=== PATIENT | female | born 1995 | race African-American/Black ===

== ENCOUNTER 2022-02-20 11:59 | Observation (INO) | payer OTHER, SELFPAY ==
[2022-02-20 12:30] VITALS: BMI 29.7
[2022-02-20 12:31] VITALS: BP 114/72; PULSE 93
[2022-02-20 12:42] LABS: Appearance Urine Cloudy (Clear); Bilirubin Urine Negative (Negative); Blood Urine Negative (Negative); Color Urine Yellow (Yellow); Glucose Urine UA Negative (Negative); Ketones Urine Negative (Negative); Leukocyte Esterase Ur Negative LEU/UL (Negative); Nitrate Urine Negative (Negative); Protein Urine Trace mg/dL (Negative); pH Urine 8.5 (5.0-9.0)
[2022-02-20 12:46] LABS: Amorphous Sediment Urine Few; Bacteria Urine Trace /hpf; Mucus Urine Rare /lpf; Squamous Epithelial Cell Urine Moderate /hpf (Few)
[2022-02-20 12:47] LABS: Add Urine Microscopic? YES
[2022-02-20 13:00] VITALS: BP 108/68; PULSE 96
[2022-02-20 13:28] VITALS: TEMP 36.6
--- NOTE | 2022-02-20 13:35 | OBADM ---
This patient, Kelsey Anton, admitted to the OB room [facility] for observation. Patient/family oriented to hospital policies and general routines including ID bracelet, bed and alarms, visiting hours, pain management, procedures, bathroom and other care routines, personal items, smoking policy, room service/diet, and visiting hours. Patient/Family are encouraged to report perceived risks to care and to ask questions if they do not understand what they are told or what they should do.
--- NOTE | 2022-03-12 08:27 | PM.OBTRLD ---
OB - Triage/Final Diagnosis Visit Information Reason for evaluation: decreased movement Comments/Additional reasons for admission: I have assessed the risk for this patient, Israrelrajendranick Debi Anton, and determined that she would benefit from observation care. Evaluation Laboratory results: Laboratory Tests 02/20/22 12:27 Urine Color Yellow Urine Appearance Cloudy H Urine pH 8.5 Ur Specific [place] 1.020 Urine Protein Trace Urine Glucose (UA) Negative Urine Ketones Negative Ur Blood (Man) Negative Urine Nitrate Negative Urine Bilirubin Negative Urine Urobilinogen 4.0 H Leukocyte Esterase Rfl Negative Urine RBC 11-20 H Urine WBC 10-15 H Ur Squamous Epith Cells Moderate H Amorphous Sediment Few H Urine Bacteria Trace Urine Mucus Rare
== END 2022-02-20 13:59 | disposition home or self-care (01) ==
LOC: ANHOBPP 12:04
PROVIDERS: Advanced Practice Midwife; Admitting Provider Obstetrics & Gynecology; Visit Provider Obstetrics & Gynecology
DX: O36.8120 Decreased fetal movements, second trimester, not applicable or unspecified (principal); O26.892 Other specified pregnancy related conditions, second trimester; R10.9 Unspecified abdominal pain; Z3A.26 26 weeks gestation of pregnancy
CPT/HCPCS: 81001; 87086; 87088; G0378; G0379

== ENCOUNTER 2022-03-06 22:45 | Observation (INO) | payer OTHER, SELFPAY ==
[2022-03-06 23:03] VITALS: BP 106/71; PULSE 98
[2022-03-06 23:15] VITALS: BP 110/74; PULSE 96
[2022-03-06 23:30] VITALS: BP 112/73; PULSE 99
[2022-03-06 23:41] LABS: Appearance Urine Clear (Clear); Bilirubin Urine Negative (Negative); Blood Urine Negative (Negative); Color Urine Yellow (Yellow); Glucose Urine UA Negative (Negative); Ketones Urine Negative (Negative); Leukocyte Esterase Ur Negative LEU/UL (Negative); Nitrate Urine Negative (Negative); Protein Urine Negative (Negative)
[2022-03-06 23:42] LABS: Bacteria Urine Trace /hpf; Mucus Urine Rare /lpf; RBC Urine 0-2 /hpf (0-2); Squamous Epithelial Cell Urine Many /hpf (Few); WBC Urine 0-3 /hpf
[2022-03-06 23:43] LABS: Add Urine Microscopic? NO
[2022-03-06 23:45] VITALS: BP 107/68; PULSE 95
[2022-03-06 23:54] VITALS: BMI 29.7
--- NOTE | 2022-03-06 23:55 | OBADM ---
This patient, Kelsey Anton, admitted to the OB room [facility] for observation. Patient/family oriented to hospital policies and general routines including ID bracelet, bed and alarms, visiting hours, pain management, procedures, bathroom and other care routines, personal items, smoking policy, room service/diet, and visiting hours. Patient/Family are encouraged to report perceived risks to care and to ask questions if they do not understand what they are told or what they should do.
[2022-03-07] VITALS: BP 108/71; PULSE 94
--- NOTE | 2022-03-13 11:18 | P.PNOB_ITS ---
OB - Triage/Final Diagnosis Visit Information Comments/Additional reasons for admission: I have assessed the risk for this patient, Kelsey Carrera Desean, and determined that she would benefit from observation care. Evaluation Laboratory results: Laboratory Tests 03/06/22 23:15 Urine Color Yellow Urine Appearance Clear Urine pH 7.0 Ur Specific [place] 1.020 Urine Protein Negative Urine Glucose (UA) Negative Urine Ketones Negative Ur Blood (Man) Negative Urine Nitrate Negative Urine Bilirubin Negative Urine Urobilinogen 4.0 H Leukocyte Esterase Rfl Negative Urine RBC 0-2 Urine WBC 0-3 Ur Squamous Epith Cells Many H Urine Bacteria Trace Urine Mucus Rare Final Diagnosis (1) Cramping complicating , antepartum: Code(s): O26.899 - Other specified related conditions, unspecified trimester; R10.9 - Unspecified abdominal pain Status: Acute
== END 2022-03-07 00:20 | disposition home or self-care (01) ==
PROVIDERS: Admitting Provider Obstetrics & Gynecology; Visit Provider Obstetrics & Gynecology
DX: O26.893 Other specified pregnancy related conditions, third trimester (principal); R10.9 Unspecified abdominal pain; Z3A.28 28 weeks gestation of pregnancy
CPT/HCPCS: 81003; G0378; G0379

== ENCOUNTER 2022-10-14 16:39 | Emergency (ER) | payer OTHER, SELFPAY ==
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
[2022-10-14 16:53] VITALS: BP 127/80; PULSE 88; RESP 16; TEMP 36.8; O2SAT 100
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
[2022-10-14] MEDS: ACETAMINOPHEN 500 MG TABLET 1000 MG PO (19:55)
[2022-10-14 20:44] VITALS: BP 120/74; PULSE 74; RESP 20; O2SAT 100
== END 2022-10-14 20:45 | disposition home or self-care (01) ==
PROVIDERS: Emergency Provider Physician Assistant
DX: S16.1XXA Strain of muscle, fascia and tendon at neck level, initial encounter (principal); V49.40XA Driver injured in collision with unspecified motor vehicles in traffic accident, initial encounter
CPT/HCPCS: 70450; 72125; 99284; A9270